=== PATIENT | female | born 1970 | race Caucasian/White ===

== ENCOUNTER 2021-04-15 00:20 | Emergency (ER) | payer SELFPAY ==
[2021-04-15 02:45] VITALS: BP 253/136
== END 2021-04-15 02:45 | disposition left against medical advice (07) ==
LOC: ED 00:20
DX: L02.426 Furuncle of left lower limb (principal); Z53.21 Procedure and treatment not carried out due to patient leaving prior to being seen by health care provider

== ENCOUNTER 2021-11-10 22:54 | Emergency (ER) | payer MEDICARE ==
[2021-11-10] MEDS ORDERED: SODIUM BICARB 8.4% 50 MEQ/50 ML SYRINGE IV ONE (23:00)
[2021-11-10] MEDS ORDERED: NALOXONE 2 MG/2 ML INJ ONE (23:00)
[2021-11-10] MEDS ORDERED: CALCIUM CHLORIDE 1,000 MG/10 ML SYRINGE IV ONE (23:00)
[2021-11-10] MEDS ORDERED: EPINEPHrine 1 MG/10 ML SYRINGE ONE (23:00)
--- NOTE | 2021-11-10 23:20 | Emergency Department Report ---
ED General Adult HPI - General Stated complaint: CARDIAC ARREST PUI?: No Time Seen by Provider: 11/10/21 23:16 Source: EMS Limitations: Altered Mental Status - History of Present Illness Initial comments: cardiac arrest at home 45 mins [employer] prevention [employer] -: Sudden - Related Data Allergies Allergy/AdvReac Type Severity Reaction Status Date / Time No Known Allergies Allergy Unverified 11/11/21 00:41 ED Review of Systems ROS: Stated complaint: CARDIAC ARREST Other details as noted in HPI Comment: Unobtainable due to pts medical conditions ED Past Medical Hx - Past Medical History Hx Hypertension: Yes Hx Diabetes: Yes ED Physical Exam - General Limitations: Other (unresponisve ) General appearance: other (unresponsive ) - Head Head exam: Present: atraumatic, normocephalic - Eye Eye exam: Present: other (dilated non reactive ) - Neck Neck exam: Present: normal inspection - Respiratory Respiratory exam: Present: other (no spont breath ) - Cardiovascular Cardiovascular Exam: Present: other (no spont pulse ) - Expanded Neurological Exam Expanded Best Eye Response ([place]): (1) no response Best Motor Response ([place]): (1) no motor response Best Verbal Response ([place]): (1) no verbal response [place] Total: 3 ED Course Vital Signs 11/10/21 22:54 Pulse Rate 0 L Respiratory 18 Rate Blood Pressure 00/00 O2 Sat by Pulse 100 Oximetry ED Medical Decision Making - Medical Decision Making pt arrived in asystole, has trach, unresosive BS 200s, epi given [place], fine v fib noted twise shock twice , asystole, pronounced at 1107 Critical care attestation.: If time is entered above; I have spent that time in minutes in the direct care of this critically ill patient, excluding procedure time. ED Disposition Clinical Impression: Cardiac arrest Disposition: 20 Is pt being admited?: No Does the pt Need Aspirin: No Condition: Undetermined
[2021-11-11] VITALS: BP 00/00
== END 2021-11-12 11:18 ==
LOC: ED 22:54
DX: I46.9 Cardiac arrest, cause unspecified (principal); I10 Essential (primary) hypertension; E11.9 Type 2 diabetes mellitus without complications
CPT/HCPCS: 92950; 99285; J0171; J2310; J3490